=== PATIENT | female | born 1950 | race Caucasian/White ===

== ENCOUNTER 2019-06-09 18:12 | Emergency (ER) | payer OTHER ==
[~2019-06-09] VITALS: Ht 162.6 cm; Wt 40.8 kg
[2019-06-09 18:21] VITALS: Ht 162.6 cm; Wt 40.8 kg
[2019-06-09 18:48] LABS: BASOPHIL % 0.2 % (0-2); PLATELET COUNT 266 x10^3mcL (130-400); RED CELL DISTRIBUTION WIDTH 13.2 % (11.5-14.5)
[2019-06-09 19:06] LABS: ALBUMIN 4.1 g/dL (3.4-5.0); BILIRUBIN TOTAL 0.4 mg/dL (0.20-1.00); CALCIUM 10.3 mg/dL (8.5-10.1); TOTAL PROTEIN, SERUM 8.2 g/dL (6.4-8.2)
[2019-06-09 19:11] LABS: POTASSIUM SERUM 2.9 mmol/L (3.5-5.1)
[2019-06-09 22:53] VITALS: BP 121/61
== END 2019-06-09 22:53 | disposition short-term general hospital (02) ==
LOC: ED 18:12
PROVIDERS: Emergency Medicine
DX: K86.1 Other chronic pancreatitis (principal); E87.6 Hypokalemia; E87.1 Hypo-osmolality and hyponatremia; J44.9 Chronic obstructive pulmonary disease, unspecified; I10 Essential (primary) hypertension; F17.210 Nicotine dependence, cigarettes, uncomplicated
CPT/HCPCS: 99406; J1885; J2270; J2405; J3010; J3480; J7030